=== PATIENT | female | born 1995 | race Caucasian/White ===

== ENCOUNTER 2020-05-21 08:37 | Emergency (ER) | payer MEDICAID, OTHER ==
[~2020-05-21] VITALS: Ht 165 cm; Wt 73.9 kg
[2020-05-21] MEDS ORDERED: ESCI10TA55 (09:00)
--- NOTE | 2020-05-21 09:16 | ED GU-Female ---
General Chief Complaint: Female Reproductive Stated Complaint: VAGINAL BLEEDING,14 WEEKS PREG Nursing Triage Note: PT PRESENTS TO ED WITH COMPLAINTS OF VAGINAL BLEDING STARTING THIS AM WHEN SHE WOKE UP. PT REPORTS SHE IS APROX 14 WEEKS PREG. Nursing Sepsis Screen: No Definite Risk Source: patient Exam Limitations: no limitations History of Present Illness Date Seen by Provider: May 21, 2020 Time Seen by Provider: 08:55 Initial Comments Here with report of vaginal bleeding. She states she woke up and had a moderate amount of blood noted. She is approximately 14 weeks . She states that she had bleeding earlier in the and was told that she had a twin but lost one of the babies at that point. Has not had significant bleeding since. States the bleeding has markedly declined now and she has not gone through a pad yet. Denies dysuria. Denies abdominal cramping or pain. States that she has vaginal discharge that is unchanged throughout her . Has 1 previous live . Timing/Duration: this morning Severity/Quality: mild Location: vaginal Activities at Onset: none Sexual [place] History: other (no recent sexual intercourse.) Modifying Factors: Improves With Resting Associated Symptoms: No abdominal pain, No dysuria, No fever/chills, No lower back pain, No nausea/vomiting, No urinary frequency Allergies and Home Medications Allergies Coded Allergies: No Known Drug Allergies (Unverified , 05/21/20) Patient Home Medication List Home Medication List Reviewed: Yes Review of Systems Review of Systems Constitutional: see HPI; No chills, No fever Respiratory: no symptoms reported Cardiovascular: no symptoms reported Gastrointestinal: see HPI Genitourinary: see HPI Expected Date of Delivery: Nov 18, 2020 Musculoskeletal: no symptoms reported Past Ospdhyz-Wbwtbz-Cgslsp Hx Past Med/Social Hx: Reviewed Nursing Past Med/Soc Hx Patient Social History Alcohol Use: Denies Use Recreational Drug Use: No Recent Foreign Travel: No Contact w/Someone Who Travel: No Recent Infectious Disease Expo: No Recent Hopitalizations: No Physical Abuse: No Sexual Abuse: No Mistreated: No Fear: No Past Medical History Surgeries: Yes (WISDOM TEETH) Respiratory: No Cardiac: No Neurological: No Expected Date of Delivery: Nov 18, 2020 Genitourinary: No Gastrointestinal: No Musculoskeletal: No Endocrine: No HEENT: No Cancer: No Psychosocial: Yes Depression Blood Disorders: No Adverse Reaction/Blood Tranf: No Family Medical History Reviewed Nursing Family Hx Physical Exam Vital Signs Vital Signs - First Documented 05/21/20 08:53 Temp 36.9 Pulse 85 Resp 16 B/P (MAP) 128/86 (100) Pulse Ox 97 Capillary Refill : Less Than 3 Seconds Height, Weight, BMI Height: '" Weight: lbs. oz. kg; 27.00 BMI Method: General Appearance: WD/WN, no apparent distress Cardiovascular: regular rate, rhythm, no murmur Respiratory: lungs clear, normal breath sounds Gastrointestinal: non tender, soft Pelvic: other (deferred after transabdominal ultrasound showed positive heart tones and movement) Extremities: non-tender, normal inspection Neurologic/Psychiatric: alert, oriented x 3 Skin: normal color, warm/dry Progress/Results/Core Measures Suspected Sepsis Recent Fever Within 48 Hours: No Infection Criteria Present: None New/Unexplained Altered Menta: No Sepsis Screen: No Definite Risk SIRS Temperature: Pulse: 85 Respiratory Rate: 16 Laboratory Tests 05/21/20 09:15: White Blood Count 7.3 Blood Pressure 128 /86 Mean: 100 Laboratory Tests 05/21/20 09:15: Platelet Count 191 Results/Orders Lab Results Laboratory Tests Test 05/21/20 09:15 Range/Units White Blood Count 7.3 4.3-11.0 10^3/uL Red Blood Count 3.79 L 4.35-5.85 10^6/uL Hemoglobin 12.1 11.5-16.0 G/DL Hematocrit 34 L 35-52 % Mean Corpuscular Volume 90 80-99 FL Mean Corpuscular Hemoglobin 32 25-34 PG Mean Corpuscular Hemoglobin Concent 35 32-36 G/DL Red Cell Distribution Width 12.5 10.0-14.5 % Platelet Count 191 130-400 10^3/uL Mean Platelet Volume 10.3 7.4-10.4 FL My Orders Orders - MARLINE DOMINGUEZ MD Abo Rh Type (05/21/20 09:08) Cbc No Diff (05/21/20 09:08) Vital Signs/I&O 05/21/20 08:53 Temp 36.9 Pulse 85 Resp 16 B/P (MAP) 128/86 (100) Pulse Ox 97 Capillary Refill : Less Than 3 Seconds Blood Pressure Mean: 100 Progress Note : Progress Note Seen and evaluated. Bedside ultrasound performed which shows positive heart tones at approximately 150 with positive movement. 14-1/7 by femur length. Patient reassured at this point. We will check CBC and ABO Rh as we do not have blood type on her. She does not think she had rolled him previously. Her bleeding is markedly decreased. With discussed pelvic exam versus following up with OB and we are in agreement that follow-up was okay at this point. Monitor patient. 0938: Patient is a positive blood type. Discharged home with return precautions. Patient verbalize understanding instructions and agreement with plan. Departure Impression Primary Impression: Threatened miscarriage Disposition: 01 HOME, SELF-CARE Condition: Stable Departure-Patient Inst. Decision time for Depature: 09:38 Patient Instructions: Threatened Miscarriage (DC), Bleeding With (DC) Add. Discharge Instructions: All discharge instructions reviewed with patient and/or family. Voiced understanding. You should rest for the next few days and do pelvic rest until follow-up with your Dr. Return for worse pain, fever, weakness, bleeding greater than 2 pads pe r hour for more than 2 hours or other concerns as needed. Your blood type is A+ MARLINE DOMINGUEZ MD May 21, 2020 09:16
[2020-05-21 09:25] LABS: HEMOGLOBIN 12.1 G/DL (11.5-16.0); MEAN PLATELET VOLUME 10.3 FL (7.4-10.4); WHITE BLOOD COUNT 7.3 10^3/uL (4.3-11.0)
[2020-05-21 09:48] VITALS: BP 107/74
== END 2020-05-21 09:48 | disposition home or self-care (01) ==
LOC: ER 08:40
DX: O20.0 Threatened abortion (principal); Z3A.14 14 weeks gestation of pregnancy
CPT/HCPCS: 36415; 85027; 86900; 86901; 99282